=== PATIENT | male | born 1990 | race Hispanic/Latino ===

== ENCOUNTER 2023-12-05 21:54 | Emergency (ER) | payer SELFPAY ==
[2023-12-05] MEDS ORDERED: methocarbamoL 750 MG TAB ONE (23:24)
[2023-12-05] MEDS ORDERED: KETOROLAC 30 MG/ML INJ ONE (23:24)
[2023-12-05] MEDS ORDERED: predniSONE 20 MG TAB ONE (23:24)
--- NOTE | 2023-12-05 23:57 | EDPHYS ---
Physician Documentation [facility] Name: Germain Paul Age: 33 yrs Sex: Male : 1990 Arrival Date: 12/05/2023 Time: 21:54 Bed DX4 Private MD: ED Physician Napoleon Raymond HPI: 12/04 22:30 This 33 yrs old Male presents to ER via Ambulatory with complaints of Back cp Pain, Cough. 22:30 The patient presents with pain that is acute. The symptoms are located in the low back. cp Onset: The symptoms/episode began/occurred suddenly, today. The problem was sustained pain in lower back started after turning to left at the waste. Severity of symptoms: in the emergency department the symptoms are unchanged, despite home interventions. 22:32 Patient also c/o productive cough times 1 week. Denies fever, denies sore throat. cp Historical: - Allergies: 22:25 No Known Allergies; lg3 - Home Meds: 22:25 None [Active]; lg3 - PMHx: 22:25 None; lg3 - PSHx: 22:25 Appendectomy; lg3 - Immunization history:: Adult Immunizations up to date. - Infectious Disease History:: Denies. - Social history:: Smoking status: Patient reports the use of cigarette tobacco products, denies chronic smoking, but will smoke occasionally, Patient uses alcohol, only on a social basis. Patient/guardian denies using street drugs. ROS: 22:35 Constitutional: Negative for body aches, chills, fever, poor PO intake, cp 22:35 Eyes: Negative for injury, pain, redness, and discharge, cp 22:35 ENT: Negative for drainage from ear(s), ear pain, sore throat, difficulty swallowing, difficulty handling secretions, 22:35 Cardiovascular: Negative for chest pain, edema, palpitations, 22:35 Respiratory: Positive for cough, "sounds productive", Negative for wheezing, 22:35 Abdomen/GI: Negative for abdominal pain, vomiting, diarrhea, constipation, bowel incontinence, 22:35 Back: Positive for pain at rest, pain with movement, of the low back area, 22:35 : Negative for urinary symptoms, hematuria, burning with urination, bladder incontinence, testicular pain 22:35 Neuro: Negative for altered mental status, dizziness, headache, syncope, weakness, 22:35 All other systems are negative, cp Exam: 22:40 Constitutional: The patient appears in no acute distress, alert, awake, cp non-diaphoretic, non-toxic, well developed, well nourished, obese, uncomfortable, 22:40 Head/Face: Normocephalic, atraumatic. cp 22:40 Eyes: Periorbital structures: appear normal, Conjunctiva: normal, no exudate, no injection, Sclera: no appreciated abnormality, Lids and lashes: appear normal, bilaterally, 22:40 ENT: External ear(s): are unremarkable, Ear canal(s): are normal, clear, TM's: dullness, bilaterally, Nose: is normal, Mouth: Lips: moist, Oral mucosa: pink and intact, moist, Posterior pharynx: Airway: no evidence of obstruction, patent, 22:40 Chest/axilla: Inspection: normal, 22:40 Cardiovascular: Rate: tachycardic, Rhythm: regular, Edema: is not appreciated, JVD: is not appreciated, 22:40 Respiratory: the patient does not display signs of respiratory distress, Respirations: normal, no use of accessory muscles, no retractions, labored breathing, is not present, Breath sounds: decreased breath sounds, are not appreciated, + upper airway congestion. wheezing: is not appreciated, 22:40 Abdomen/GI: Inspection: obese Palpation: abdomen is soft and non-tender, in all quadrants, 22:40 Back: pain, that is moderate, of the low back area, ROM is painful, with all movement, 22:40 Neuro: Orientation: to person, place \\T\\ time. Mentation: is normal, Motor: moves all fours, strength is normal, Sensation: is normal, Gait: is steady, Vital Signs: 22:23 BP 142 / 90; Pulse 102; Resp 17 S; Temp 98.6; Pulse Ox 98% on R/A; Weight 136.53 kg lg3 (R); Height 6 ft. 1 in. (R); 12/05 00:13 BP 137 / 88; Pulse 97; Resp 16 S; Temp 98.4(O); Pulse Ox 99% on R/A; lg3 12/04 22:23 Body Mass Index 39.71 (136.53 kg, 185.42 cm) lg3 MDM: 10/16 23:55 Data reviewed: vital signs, nurses notes, radiologic studies, plain films, and as a cp result, I will discharge patient. 23:55 Differential diagnosis: Pyelonephritis spinal injury, sprain, Ureterolithiasis. I cp considered the following discharge prescriptions or medication management in the emergency department Medications were administered in the Emergency Department. See MAR. Counseling: I had a detailed discussion with the patient and/or guardian regarding the historical points, exam findings, and any diagnostic results supporting the discharge/admit diagnosis, to return to the emergency department if symptoms worsen or persist or if there are any questions or concerns that arise at home. Response to treatment: the patient's symptoms have mildly improved after treatment, and as a result, I will discharge patient. 23:56 Medical Screening Exam initiated 12/04 22:25 Order name: XRAY Chest Pa And Lat (2 Views) cp Administered Medications: 23:40 Drug: Methocarbamol PO 750 mg PO once Route: PO; 12/05 00:12 Follow up: Response: No adverse reaction [facility] 12/04 23:40 Drug: predniSONE PO 60 mg PO once Route: PO; 12/05 00:12 Follow up: Response: No adverse reaction [facility] 12/04 23:42 Drug: Ketorolac IM 30 mg IM once Route: IM; Site: left deltoid; 12/05 00:12 Follow up: Response: No adverse reaction lg3 Disposition Summary: 12/05/23 23:56 Discharge Ordered Notes: Location: Home cp Problem: new cp Symptoms: have improved cp Condition: Stable cp Diagnosis - Cough cp - Low back pain cp Followup: cp - With: Private Physician - When: 2 - 3 days - Reason: Worsening of condition Discharge Instructions: - Discharge Summary Sheet cp - Acute Back Pain, Adult cp - Cough, Adult cp - Heat Therapy cp - Back Exercises cp Forms: - Work release form cp - Medication Reconciliation Form cp - Antibiotic Education cp - Prescription Opioid Use cp - Patient Portal Instructions cp - Leadership Thank You Letter cp Prescriptions: - Bromfed DM 2-30-10 mg/5 mL Oral syrup - administer 10 milliliter ORAL route every 6-8 hours as needed for sinus cp symptoms; 240 milliliter; Refills: 0, Product Selection Permitted - Zithromax Z-Russell 250 mg Oral Tablet - take 1 tablet ORAL route as directed for 5 days Day 1 - take two (2) tablets cp one time. Day 2, 3, 4 , 5 take one (1) tablet once daily.; 6 tablet; Refills: 0, Product Selection Permitted - Medrol (Russell) 4 mg Oral Tablets, Dose Pack - take 1 tablet ORAL route as directed - follow package instructions; 1 packet; cp Refills: 0, Product Selection Permitted - methocarbamol 750 mg Oral tablet - take 1 tablet ORAL route 3-4 times daily; 30 tablet; Refills: 0, Product cp Selection Permitted Signatures: Dispatcher [employer] EDMS Jonna Almonte, RN RN Napoleon Faust PA PA Mily Blanchard RN RN lg3 Corrections: (The following items were deleted from the chart) 12/04 22:25 22:25 Chest Pa And Lat (2 Views)+[email or web address] ordered. [facility] 22:25 22:25 PSHx: None; lg3 lg3
--- NOTE | 2023-12-05 23:57 | ER ---
Nurse's Notes [facility] Name: Germain Paul Age: 33 yrs Sex: Male : 1990 Arrival Date: 12/05/2023 Time: 21:54 Bed DX4 Private MD: Diagnosis: Cough;Low back pain Presentation: 12/04 22:23 Chief complaint: Patient states: cough X1 week. low back pain starting today. lg3 Coronavirus screen: Client denies travel out of the [place] in the last 14 days. Client presents with at least one sign or symptom that may indicate coronavirus-19. Standard/surgical mask placed on the client. Ebola Screen: No symptoms or risks identified at this time. Initial Sepsis Screen: Does the patient meet any 2 criteria? No. Patient's initial sepsis screen is negative. Does the patient have a suspected source of infection? No. Patient's initial sepsis screen is negative. Risk Assessment: Do you want to hurt yourself or someone else? Patient reports no desire to harm self or others. Onset of symptoms is unknown. 22:23 Method Of Arrival: Ambulatory lg3 22:23 Acuity: BHARTI 4 lg3 Triage Assessment: 22:25 General: Appears in no apparent distress. uncomfortable, Behavior is calm, cooperative. lg3 Pain: Complains of pain in low back area. EENT: No deficits noted. Reports nasal congestion. Neuro: No deficits noted. Krueger Agitation-Sedation Scale (RASS): 0 - Alert and Calm Level of Consciousness is awake, alert, obeys commands, Oriented to person, place, time, situation. Cardiovascular: No deficits noted. Denies chest pain, shortness of breath, Capillary refill < 3 seconds Clubbing of nail beds is absent JVD is absent Patient's skin is warm and dry. Respiratory: No deficits noted. Reports cough that is Airway is patent Respiratory effort is even, unlabored, Respiratory pattern is regular, symmetrical. GI: No deficits noted. No signs and/or symptoms were reported involving the gastrointestinal system. Abdomen is round non-distended. : No deficits noted. No signs and/or symptoms were reported regarding the genitourinary system. Derm: No deficits noted. No signs and/or symptoms reported regarding the dermatologic system. Skin is intact, is healthy with good turgor, Skin is dry, Skin is normal, Skin temperature is warm. Musculoskeletal: No deficits noted. Circulation, motion, and sensation intact. Range of motion: intact in all extremities. Historical: - Allergies: 22:25 No Known Allergies; lg3 - Home Meds: 22:25 None [Active]; lg3 - PMHx: 22:25 None; lg3 - PSHx: 22:25 Appendectomy; lg3 - Immunization history:: Adult Immunizations up to date. - Infectious Disease History:: Denies. - Social history:: Smoking status: Patient reports the use of cigarette tobacco products, denies chronic smoking, but will smoke occasionally, Patient uses alcohol, only on a social basis. Patient/guardian denies using street drugs. Screenin:26 [facility] ED Fall Risk Assessment (Adult) History of falling in the last 3 months, lg3 including since admission No falls in past 3 months (0 pts) Confusion or Disorientation No (0 pts) Intoxicated or Sedated No (0 pts) Impaired Gait No (0 pts) Mobility Assist Device Used No (0 pt) Altered Elimination No (0 pt) Score/Fall Risk Level 0 - 2 = Low Risk Oriented to surroundings, Maintained a safe environment, Educated pt \T\ family on fall prevention, incl call for assistance when getting out of bed, Assessed \T\ reinforced patient's understanding of fall precautions. Abuse screen: Denies threats or abuse. Denies injuries from another. Nutritional screening: No deficits noted. Tuberculosis screening: No symptoms or risk factors identified. Assessment: 22:26 General: see triage assessment. Neuro: No deficits noted. Krueger Agitation-Sedation lg3 Scale (RASS): 0 - Alert and Calm Level of Consciousness is awake, alert, obeys commands, Oriented to person, place, time, situation. 12/05 00:13 Reassessment: Patient appears in no apparent distress at this time. No changes from lg3 previously documented assessment. Patient and/or family updated on plan of care and expected duration. Pain level reassessed. Patient is alert, oriented x 3, equal unlabored respirations, skin warm/dry/pink. Vital Signs: 12/04 22:23 BP 142 / 90; Pulse 102; Resp 17 S; Temp 98.6; Pulse Ox 98% on R/A; Weight 136.53 kg lg3 (R); Height 6 ft. 1 in. (R); 12/05 00:13 BP 137 / 88; Pulse 97; Resp 16 S; Temp 98.4(O); Pulse Ox 99% on R/A; lg3 12/04 22:23 Body Mass Index 39.71 (136.53 kg, 185.42 cm) lg3 ED Course: 12/04 21:57 Patient arrived in ED. gm2 21:58 Napoleon Pichardo PA is PHCP. cp 21:58 Napoleon Raymond MD is Attending Physician. cp 22:25 Triage completed. lg3 22:25 Arm band placed on right wrist. lg3 22:26 Patient has correct armband on for positive identification. Family accompanied patient. lg3 22:57 XRAY Chest Pa And Lat (2 Views) In Process Unspecified. EDMS 12/05 00:11 Mily Noel, RN is Primary Nurse. lg3 00:12 No provider procedures requiring assistance completed. Patient did not have IV access lg3 during this emergency room visit. Administered Medications: 12/04 23:40 Drug: Methocarbamol PO 750 mg PO once Route: PO; 12/05 00:12 Follow up: Response: No adverse reaction lg3 12/04 23:40 Drug: predniSONE PO 60 mg PO once Route: PO; 12/05 00:12 Follow up: Response: No adverse reaction lg3 12/04 23:42 Drug: Ketorolac IM 30 mg IM once Route: IM; Site: left deltoid; 12/05 00:12 Follow up: Response: No adverse reaction lg3 Medication: 12/04 22:26 VIS not applicable for this client. lg3 Outcome: 23:56 Discharge ordered by . 12/05 00:12 Discharged to home ambulatory, lg3 Condition: stable Discharge instructions given to patient, Instructed on discharge instructions, follow up and referral plans. medication usage, Demonstrated understanding of instructions, follow-up care, medications, Prescriptions given X 4, 00:15 Patient left the ED. lg3 Signatures: Dispatcher [employer] EDMS Jonna Almonte RN Napoleon Perez PA PA cp Able, Lacie RN RN lg3 Leah Young gm2 Corrections: (The following items were deleted from the chart) 12/04 22:25 22:25 PSHx: None; lg3 lg3
[2023-12-06 03:42] VITALS: BP 137/88; TEMP 98.4; O2SAT 99
--- NOTE | 2023-12-06 06:46 | RAD REPORT ---
PROCEDURE: XR Chest, 2 Views CLINICAL INDICATION: The patient is 33 years old and is Male; Cough TECHNIQUE: Frontal and lateral views of the chest. COMPARISON: None. FINDINGS: LUNGS: Unremarkable No consolidation. PLEURAL SPACE: No appreciable pleural effusion or pneumothorax. HEART: Unremarkable No cardiomegaly. MEDIASTINUM: Unremarkable Normal mediastinal contour. BONES/JOINTS: No acute osseous abnormality. IMPRESSION: No acute cardiopulmonary abnormality. Electronically signed by: Justyn Henderson MD 12/06/2023 12:02 AM CDT Due to temporary technical issues with the PACS/hoccer reporting system, reports are being cassy d by the in-house radiologist without review as a courtesy to ensure prompt reporting the interpreting radiologist is fully responsible for the content of the report. Transcribed Date/Time: 12/06/2023 6:46 AM
== END 2023-12-06 00:15 | disposition home or self-care (01) ==
LOC: ER 21:54
DX: R05.9 Cough, unspecified (principal); M54.50 Low back pain, unspecified; F17.210 Nicotine dependence, cigarettes, uncomplicated
CPT/HCPCS: 71046; 96372; 99284; J7512